=== PATIENT | male | born 1955 | race Caucasian/White ===

== ENCOUNTER 2020-04-09 12:04 | Outpatient (CLI) | payer MEDICARE, SELFPAY ==
--- NOTE | 2020-04-09 12:10 | ECG_ITS ---
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 Interpretive Statements NAME OF STUDY: TREADMILL STRESS TEST INDICATION: HYPERTENSION, Chest pain EXERCISE DATA: The patient was exercised by Venu protocol for 6 minutes and 55 seconds. Baseline heart rate was 81 beats per minute and blood pressure was 155/96 mm Hg. Maximum heart rate achieved was 156 bpm, which was 100 % of the target heart rate. Maximum blood pressure was 215/96 mm Hg. Maximum METs achieved was 10.2, maximum VO2 was 35.7 ml/kg.min. The reason for ending the test was maximum effort achieved. The patient complained of shortness of breath during the stress test, which resolved at the end of the test. ELECTROCARDIOGRAM: BASELINE: Normal sinus rhythm, RBBB and non specific ST-T wave changes. EXERCISE: At the peak exercise level, EKG showed sinus tachycardia with upsloping ST segment depression not meeting diagnostic criteria for ischemia. RECOVERY: During the recovery period, heart rate dropped appropriately. No significant ST-T changes in the recovery suggestive of ischemia noted. CONCLUSION: 1. Stress EKG is negative for ischemia. 2. Hypertensive response to exercise. 4. Symptoms not suggestive of ischemia. 5. Exercise capacity is good. Electronically Signed On 04-12-2020 23:13:37 CDT by Magy Bay M.D. [email or web address]
[2020-04-09 12:15] VITALS: BMI 27.7
[2020-04-09 12:58] VITALS: BP 178/92; PULSE 93
== END 2020-04-09 12:05 | disposition home or self-care (01) ==
LOC: CDL 12:09
PROVIDERS: PCP Nurse Practitioner Family; Visit Provider Nurse Practitioner Family
DX: I10 Essential (primary) hypertension (principal); R07.9 Chest pain, unspecified
CPT/HCPCS: 93017

== ENCOUNTER → 2022-05-10 14:15 | Outpatient (BNVA) | payer MEDICARE, SELFPAY | PROVIDERS: PCP Nurse Practitioner Family; Visit Provider Internal Medicine | DX: I10 Essential (primary) hypertension (principal); R94.31 Abnormal electrocardiogram [ECG] [EKG]; Z87.891 Personal history of nicotine dependence; I45.10 Unspecified right bundle-branch block | CPT/HCPCS: 93005; 99203; 99204 ==

== ENCOUNTER → 2024-07-24 12:25 | Outpatient (BNVA) | payer MEDICARE, SELFPAY | PROVIDERS: PCP Nurse Practitioner Family; Visit Provider Internal Medicine | DX: I10 Essential (primary) hypertension (principal); R94.31 Abnormal electrocardiogram [ECG] [EKG]; Z87.891 Personal history of nicotine dependence | CPT/HCPCS: 99213 ==